=== PATIENT | female | born 1965 | race Caucasian/White ===

== ENCOUNTER 2019-12-07 15:28 | Observation (INO) | payer OTHER, SELFPAY ==
[2019-12-07] VITALS (12 sets, daily range): BP systolic 139–179; BP diastolic 88–111; PULSE 70–98; RESP 16–27; TEMP 36.8–37; O2SAT 89–98; BMI 33.5
--- NOTE | ~2019-12-07 | CT_ITS ---
EXAMINATION: CTA chest PE protocol EXAM DATE: 12/07/2019 17:56 INDICATION: Shortness of breath, sinus drainage, history of pneumonia. TECHNIQUE: Spiral CTA of the chest (pulmonary arteries) was performed with 100 cc Omnipaque 350 intr avenous contrast injection. Images were acquired during the pulmonary arterial phase. Coronal maxi mum intensity projection 3D-reconstructions were created by the technologist on dedicated workstation . Axial, coronal and sagittal reformatted images were reviewed. The dose-length product (DLP) for t his examination was 835.78 mGy-cm. The exposure was tailored according to patient size (auto mA exp osure control), and iterative reconstruction (ASIR) was used as additional dose reduction technique. There is no prior study for comparison. FINDINGS: Pulmonary arteries are well opacified and without intraluminal filling defects. No thora cic aortic dissection. The lungs are clear. There are no pleural or pericardial effusions. Trach eobronchial tree is patent. There is no mediastinal, hilar or axillary lymphadenopathy. There is no pneumothorax. Heart normal in size. No evidence of coronary arterial calcification. Upper abd omen is unremarkable. There is thoracic spondylosis without osteoblastic or osteolytic lesions iden tified. IMPRESSION: 1. Unremarkable CT pulmonary exam. Reviewed, dictated and finalized at location A.
--- NOTE | ~2019-12-07 | XR_ITS ---
EXAMINATION: XR chest 1V portable EXAM DATE: 12/07/2019 16:03 INDICATION: Shortness of breath, history of asthma. History of pneumonia. TECHNIQUE: Portable AP frontal chest x-ray was obtained. Comparison is made to prior examination from 01/08/2009. FINDINGS: The lungs are clear. There are no pleural effusions. The cardiomediastinal silhouette is within normal limits. There is no pneumothorax suspected. There is an old right 6th rib fracture. M ild thoracic spondylosis. IMPRESSION: No acute cardiopulmonary findings. Reviewed, dictated and finalized at location A.
--- NOTE | 2019-12-07 15:35 | ECG_ITS ---
Measurements Intervals [place] Rate: 88 P: 76 CT: 153 QRS: 66 QRSD: 94 T: 44 QT: 334 QTc: 405 Interpretive Statements SINUS RHYTHM BORDERLINE ST ABNORMALITY- ANT/INF LEADS BORDERLINE ECG Electronically Signed On 12-07-2019 16:28:38 CDT by Hugo Hunter D.O.
[2019-12-07 16:16] LABS: Basophils Absolute Auto 0.1 K/mm3 (0.0-0.1); Basophils Percent Auto 0.9 % (0.2-1.2); Eosinophils Absolute Auto 0.3 K/mm3 (0-0.3); Eosinophils Percent Auto 2.8 % (0-4.4); Hematocrit 44.3 % (37.0-47.0); Immature Granulocyte Absolute 0.04 K/mm3 (0.00-0.031); Immature Granulocyte Percent A 0.4 % (0-0.5); Lymphocytes Absolute Auto 1.64 K/mm3 (0.9-3.2); Mean Corpuscular HGB Conc 31.6 g/dl (32-36); Mean Corpuscular Hemoglobin 26.4 pg (26-34); Mean Corpuscular Volume 83.4 fl (80-100); Mean Platelet Volume 11.7 fl (7.4-10.4); Monocytes Absolute Auto 1.1 K/mm3 (0.1-0.6); Monocytes Percent Auto 10.7 % (2.6-8.5); Neutrophils Absolute Auto 7.1 K/mm3 (1.3-6.7); Neutrophils Percent Auto 69.2 % (45.5-73.1); Platelet Count Result 287 k/mm3 (150-375); Red Blood Count 5.31 M/mm3 (4.2-5.4); Red Cell Distribution Width 13.3 % (11.5-14.5); White Blood Count 10.3 K/mm3 (4.5-10.0)
[2019-12-07 16:26] LABS: Anion Gap 9 mmol/L (8-16); Blood Urea Nitrogen 12 mg/dL (7-17); Carbon Dioxide 25 mmol/L (22-30); Chloride 103 mmol/L (98-107); Estimated CRCL calculation 97 ml/min; Estimated Glomerular Filt Rate > 60; Glucose 133 mg/dL (65-105); Potassium 3.7 mmol/L (3.4-5.0); Sodium 137 mmol/L (137-145)
--- NOTE | 2019-12-07 16:39 | PC.NURSE ---
called lab to add julián
--- NOTE | 2019-12-07 16:46 | ED.GENADULT ---
HPI - General Adult General Chief complaint: Shortness of Breath/Dyspnea Stated complaint: sob Time Seen by Provider: 12/07/19 15:39 History of Present Illness HPI narrative: Patient is a 54 y/o female complaining of moderate shortness of breath since yesterday. She states her SOB is worse with supine position and exertion. She also has some cough with yellow sputum and nasal congestion. The cough and congestion has been going on for 4 days. She has no fever. Related Data Allergies Allergy/AdvReac Type Severity Reaction Status Date / Time penicillin G Allergy Mild Unknown Verified 12/07/19 15:50 Review of Systems Constitutional: Constitutional: Denies chills, Denies fever(s), Denies headache(s) and Denies weakness Eyes: Eyes: Denies blurry vision ENT: Denies headache(s), Reports nasal obstruction and Denies neck pain Cardiovascular: Cardiovascular: Denies chest pain and Reports dyspnea Respiratory: Respiratory: Reports cough and Reports dyspnea Gastrointestinal: Gastrointestinal: Denies abdominal pain, Denies diarrhea, Denies nausea and Denies vomiting Genitourinary: Genitourinary: Denies hematuria and Denies dysuria Musculoskeletal: Musculoskeletal: Denies back pain and Denies neck pain Neurologic: Denies headache(s) and Denies weakness [facility] Social History Social History Gender identity (if verbalized by the patient): Female Exam Const: General: no acute distress and well developed Orientation/consciousness: oriented to person, oriented to place, oriented to time and patient oriented x3 HENMT: Head: normocephalic Ears: external ears normal General nose exam: Normal external nose present Eyes: General: appearance normal, both eyes and all related structures Conjunctivae: conjunctivae normal Neck: Neck: normal visual inspection and full ROM Chest: Chest palpation & inspection: normal inspection of the chest and no tenderness Resp: Effort & Inspection: normal respiratory effort Auscultation: wheezes Cardio: Rate: regular rate Rhythm: regular rhythm GI: GI Palp: No abdominal tenderness and Yes Soft to palpation Skin: General skin exam: normal color and turgor normal Neuro: General: oriented to person, oriented to place, oriented to time and patient oriented x3 Cognition (Neuro): normal cognition Extrem: General: normal to inspection, full ROM and no pedal edema Psych: Appearance: grossly normal Mental Status: mental status grossly normal Affect: normal affect Course Consultations Consultation #1: Discussed with PEYMAN Kraus, who agrees to admit. Date: 12/07/19 Time: 18:25 Vital Signs Vital signs: Vital Signs Temperature 37.0 C 12/07/19 15:31 Pulse Rate 97 12/07/19 15:31 Respiratory Rate 27 H 12/07/19 15:31 Blood Pressure 155/108 H 12/07/19 15:31 Pulse Oximetry 94 12/07/19 15:31 Temperature 37.0 C 12/07/19 15:31 Pulse Rate 85 12/07/19 18:58 Respiratory Rate 17 12/07/19 18:58 Blood Pressure 168/99 H 12/07/19 18:58 Pulse Oximetry 98 12/07/19 18:58 Medical Decision Making Vital Signs Vital Signs: Vital Signs Temperature 37.0 C 12/07/19 15:31 Pulse Rate 97 12/07/19 15:31 Respiratory Rate 27 H 12/07/19 15:31 Blood Pressure 155/108 H 12/07/19 15:31 Pulse Oximetry 94 12/07/19 15:31 Temperature 37.0 C 12/07/19 15:31 Pulse Rate 85 12/07/19 18:58 Respiratory Rate 17 12/07/19 18:58 Blood Pressure 168/99 H 12/07/19 18:58 Pulse Oximetry 98 12/07/19 18:58 Lab Data Result diagrams: 12/07/19 16:08 12/07/19 16:08 Labs: Lab Results 12/07/19 12/07/19 12/07/19 Range/Units 16:08 16:08 16:08 WBC 10.3 H (4.5-10.0) K/mm3 RBC 5.31 (4.2-5.4) M/mm3 Hgb 14.0 (12.0-15.0) g/dL Hct 44.3 (37.0-47.0) % MCV 83.4 (80-100) fl MCH 26.4 (26-34) pg MCHC 31.6 L (32-36) g/dl RDW 13.3 (11.5-14.5) % Plt Count 287
[2019-12-07 16:54] LABS: D Dimer 0.53 ug/mL (<0.48)
[2019-12-07 16:59] LABS: NT Pro B Type Natriuretic Pept 106 PG/ML (5-100); Troponin I < 0.012 ng/mL (0.000-0.034)
[2019-12-07 17:10] LABS: Alveolar/Arterial O2 Gradient 40.4 mmHg; Base Excess ABG -0.1 mEq/l (+/-2.0); Fractional Inspired Oxygen 21 %; HCO3 ABG 25.4 mEq/l (22.0-26.0); Oxygen Content ABG 17.3 %vol (16.0-22.0); Oxygen Saturation ABG 88.3 % (95.0-100.0); Oxyhemoglobin 88.8 % THb (90.0-100.0); PCO2 ABG 44.6 mmHg (35.0-45.0); PO2 ABG 55.9 mmHg (80.0-100.0); PO2 FiO2 Ratio Arterial Blood 2.66 %; Total Hemoglobin 13.9 g/dL (12.0-18.0); pH ABG 7.374 (7.350-7.450)
[2019-12-07 17:11] LABS: Device ROOM AIR; Modified Allen's Test Pass; Site Drawn RIGHT RADIAL
--- NOTE | 2019-12-07 17:45 | PC.NURSE ---
Pt 89% when from chair to stretcher, tripod sitting.
--- NOTE | 2019-12-07 17:54 | PC.NURSE ---
Pt to CT scan via stretcher.
[2019-12-07] MEDS: methylPREDNISolone SOD SUCC 125 MG VIAL IV PUSH (18:37)
[2019-12-07 20:23] LABS: Troponin I < 0.012 ng/mL (0.000-0.034)
[2019-12-07] MEDS: ALBUTEROL SULFATE (*SP) AEROSOL 1 PUFF 2 PUFF INHALATION (20:49)
[2019-12-07 22:38] LABS: Troponin I < 0.012 ng/mL (0.000-0.034)
--- NOTE | 2019-12-07 22:54 | ADMGEN ---
This patient, Letha Castellanos, was admitted to [facility] Surg Room 327-01. Patient/family oriented to hospital policies and general routines including ID bracelet, bed and alarms, visiting hours, pain management, procedures, bathroom and other care routines, personal items, smoking policy, room service/diet, and visiting hours. Valuables list has been completed. Information on how to activate the Rapid Response Team has been discussed. Patient/Family are encouraged to report perceived risks to care and to ask questions if they do not understand what they are told or what they should do.
[2019-12-08] VITALS (10 sets, daily range): BP systolic 139–151; BP diastolic 58–83; PULSE 65–104; RESP 18–24; TEMP 36.7–37.3; O2SAT 94–97
[2019-12-08] MEDS: ALBUTEROL SULFATE (*SP) AEROSOL 1 PUFF 2 PUFF INHALATION (05:18)
--- NOTE | 2019-12-08 06:15 | PM.IMHP ---
H&P: HPI History of Present Illness Date/Time: 12/08/19 06:15 Chief complaint: Shortness of breath Narrative: Letha Castellanos is a 54 year old female with a past medical history of chronic tobacco abuse, seasonal rhinitis and GERD who presented to the ER with shortness of breath. The patient reports that she has been feeling ill for 5 days. Her symptoms started with rhinorrhea and postnasal drip. She then began having a cough productive of yellow sputum and she knew that the infection was going down into her lungs. She called her primary care provider who wanted the patient to have a virtual visit but the patient decided that she would come into the ER instead. She has not been having any fevers or chills. She denies loss of sense of taste or smell. She denies any known ill contacts with COVID-19. She has been social distant seeing and only leaving the house to go grocery shopping. She has been laid off since the beginning of the pandemic. She denies any fevers or chills. Her shortness of breath is worse with lying down due to increased cough. Her shortness of breath is also worse with exertion. She denies any chest pain or palpitations. She has not noticed any lower extremity swelling. Review of Systems Review of Systems: Narrative: 12 systems were reviewed with pertinent positives and negatives per HPI. Except as documented in the HPI, all other systems were reviewed and are negative. [facility] Past Medical History Medical History (Updated 12/08/19 @ 07:10 by Conchita Harper DO) GERD (gastroesophageal reflux disease) Hemorrhoids Seasonal rhinitis Tobacco use Umbilical hernia Surgical History Surgical History History of dilation and curettage 1996 Hx of tonsillectomy Family History Family History Father , at age 69 Coronary artery disease Mother , in her 80s Diabetes mellitus COPD (chronic obstructive pulmonary disease) Social History Social History (Updated 12/08/19 @ 07:03 by Conchita Harper DO) Social History: The patient has smoked for about 5 years and quit when she was 21. She then started smoking again about 10 years ago. On average she smokes about a pack of cigarettes per day. the patient is 1 of 8 children. Her oldest sister is 22 years older than the patient. She is the 2nd youngest child. She reports that her siblings are relatively healthy. Primary care provider: Dr. Shultz Code Status: full code Smoking packs per day: 1 Smoking cigarettes per day: 20.0 Years smoked: 15 Smoking pack-years: 15.00 Smoking status: Former smoker Tobacco type: cigarettes Second hand tobacco smoke exposure: No Smoking end date: 12/05/19 Additional smoking assessment comments: patient states she quit two days ago Alcohol intake: former Alcohol use details: The patient used to drink alcohol in moderation on occasion but has not drank alcohol in many years. Substance use: never Living arrangements: alone Additional living arrangements comments: She lives alone and has 2 adult children. She has 2 dogs. 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 Gender identity (if verbalized by the patient): Female Spiritual care concerns: No Meds Home Medications and Allergies Home Medications Medication Instructions Recorded Confirmed Type omeprazole magnesium [Acid [employer] 20 mg PO DAILY 12/07/19 12/07/19 History (omeprazole)] Allergies Allergy/AdvReac Type Severity Reaction Status Date / Time penicillin G Allergy Mild Unknown Verified 12/07/19 15:50 Vital Signs Vital Signs - 24 hr 12/07/19 15:31 12/07/19 15:47 12/07/19 16:28 Temperature 98.6 F Pulse Rate 97 88 Respiratory Rate 27 H Blood Pressure 155/108 H Pulse Oximetr
[2019-12-08] MEDS: ALBUTEROL SULFATE (*SP) AEROSOL 1 PUFF 6 PUFF INHALATION ×4 (08:02→21:42)
[2019-12-08] MEDS: PANTOPRAZOLE 40 MG TABLET PO (08:07)
[2019-12-08] MEDS: methylPREDNISolone SOD SUCC 125 MG VIAL 60 MG IV PUSH (08:07)
[2019-12-08 14:26] LABS: SARS-CoV-2 RNA PCR Negative
[2019-12-08] MEDS: methylPREDNISolone SOD SUCC 40 MG VIAL IV PUSH ×2 (15:16→21:25)
[2019-12-09] VITALS (8 sets, daily range): BP systolic 124–140; BP diastolic 65–77; PULSE 70–91; RESP 16–20; TEMP 36.3–37.1; O2SAT 91–95
[2019-12-09] MEDS: methylPREDNISolone SOD SUCC 40 MG VIAL IV PUSH ×3 (06:00→20:28)
[2019-12-09] MEDS: ALBUTEROL SULFATE (*SP) AEROSOL 1 PUFF 6 PUFF INHALATION ×4 (08:21→19:56)
[2019-12-09] MEDS: PANTOPRAZOLE 40 MG TABLET PO (08:34)
[2019-12-09] MEDS: FLUTICASONE PROPIONATE 0.05% NA SPR 16 GM BTL (*BKC) 1 SPRAY NASAL ×2 (10:17→20:28)
--- NOTE | 2019-12-09 14:51 | PM.IMPN ---
Progress Note: A&P Assessment and Plan (1) Bronchitis: Code(s): J40 - Bronchitis, not specified as acute or chronic Status: Acute (2) Tobacco abuse disorder: Code(s): Z72.0 - Tobacco use Status: Acute Assessment and Plan: Pt advised to quit smoking (3) Acute respiratory failure with hypoxia: Code(s): J96.01 - Acute respiratory failure with hypoxia Status: Acute Assessment and Plan: Continue breathing treatments, and IV steroids (4) Acute bronchitis: Code(s): J20.9 - Acute bronchitis, unspecified Status: Acute Assessment and Plan: will increase the patient's albuterol inhalers to 6 puffs Q 6 hours scheduled and will add Spiriva. Will increase the patient's Solu-Medrol to 60 mg q.8 hours. Pt is covid negative . Subjective Date/time seen: 12/09/19 14:51 Pt is admitted for copd excerbation, covid was negative Review of Systems Review of Systems: All systems reviewed & are unremarkable except as noted in HPI and below Cardiovascular: Cardiovascular: Reports dyspnea Comments: wheezy lungs Exam Narrative: Exam Narrative: PHYSICAL EXAM: Respiratory: Diffuse wheezing anterior lung silva Cardiovascular: normal S1-S2, no murmurs, 2+ pulses bilateral upper and lower extremities Gastrointestinal: soft, nontender, nondistended, positive bowel sounds, soft easily reducible umbilical hernia Skin: normal temperature, non jaundice, no pallor Musculoskeletal: no clubbing, cyanosis or edema Neurological: alert and oriented, speech is clear, no facial asymmetry Psychiatric: Appropriate mood and affect, pleasant and cooperative Objective Data Vital Signs Vital Signs: Vital Signs - 24 hr 12/08/19 16:00 12/08/19 20:00 12/08/19 21:43 Temperature Pulse Rate 94 104 H 86 Respiratory Rate 20 Blood Pressure Pulse Oximetry 94 12/08/19 22:00 12/09/19 00:00 12/09/19 04:00 Temperature 36.7 C 36.3 C L Pulse Rate 90 82 86 Respiratory Rate 18 18 Blood Pressure 142/83 H 140/74 Pulse Oximetry 96 95 12/09/19 08:00 12/09/19 08:23 12/09/19 09:15 Temperature Pulse Rate 70 Respiratory Rate Blood Pressure Pulse Oximetry 95 95 92 Intake/Output Intake/Output: Intake & Output 08/0912/07/19 12/08/19 12/09/19 23:59 23:59 23:59 23:59 Intake Total 380 1410 570 Output Total 1650 Balance 380 -240 570 Meds/Results Medications: Active Medications Generic Name Dose Route Start Last Admin Trade Name Freq PRN Reason Stop Dose Admin Albuterol 6 puff 12/08/19 08:00 12/09/19 12:45 Proventil Hfa INHALATION 6 puff QIDRT FARHEEN Administration Fluticasone Propionate 1 spray 12/09/19 09:15 12/09/19 10:17 Flonase 0.05% Nasal [place] NASAL 1 spray Q12HR FARHEEN Administration Methylprednisolone Sodium Succinate 40 mg 12/08/19 14:00 12/09/19 14:16 Solu-Medrol IV PUSH 40 mg Q8HR FARHEEN Administration Pantoprazole Sodium 40 mg 12/08/19 09:00 12/09/19 08:34 Protonix PO 01/07/20 09:01 40 mg DAILY FARHEEN Administration Tiotropium [place] 1 cap 12/08/19 09:00 12/09/19 08:22 Spiriva INHALATION 1 cap QAM FARHEEN Administration Radiology Results: ITS Impressions Chest X-Ray 12/07/19 16:04 IMPRESSION: No acute cardiopulmonary findings. Chest CTA 12/07/19 18:03 IMPRESSION: 1. Unremarkable CT pulmonary exam. Quality VTE Prophylaxis VTE prophylaxis: pharmacologic ordered ( Lovenox 40 mg subq daily)
[2019-12-10 05:57] VITALS: BP 136/79; PULSE 77; RESP 18; TEMP 36.8; O2SAT 92
[2019-12-10] MEDS: ALBUTEROL SULFATE (*SP) AEROSOL 1 PUFF 6 PUFF INHALATION ×3 (09:06→15:39)
[2019-12-10 09:09] VITALS: O2SAT 95
[2019-12-10] MEDS: FLUTICASONE PROPIONATE 0.05% NA SPR 16 GM BTL (*BKC) 1 SPRAY NASAL (09:17)
[2019-12-10] MEDS: PANTOPRAZOLE 40 MG TABLET PO (09:17)
[2019-12-10] MEDS: methylPREDNISolone SOD SUCC 40 MG VIAL IV PUSH (09:18)
--- NOTE | 2019-12-10 14:10 | P.DS_ITS ---
DS: Admitting Diagnosis Admitting Diagnosis Admitting Diagnosis: Shortness of breath DS: Discharge Diagnosis Discharge Diagnosis (1) Bronchitis: Code(s): J40 - Bronchitis, not specified as acute or chronic Status: Acute Assessment and Plan: Pt is admitted for copd excerbation, covid was negative. Treated for COPD excerbation in hospital, did well and was discharged home. (2) Tobacco abuse disorder: Code(s): Z72.0 - Tobacco use Status: Acute Assessment and Plan: Pt advised to quit smoking (3) Acute respiratory failure with hypoxia: Code(s): J96.01 - Acute respiratory failure with hypoxia Status: Acute Assessment and Plan: * Continue breathing treatments, and IV steroids (4) Acute bronchitis: Code(s): J20.9 - Acute bronchitis, unspecified Status: Acute Assessment and Plan: * Patient is on albuterol inhalers to 6 puffs Q 6 hours scheduled and will add Spiriva. * Pt was on iv Solu-Medrol to 60 mg q.8 hours. Weaned off iv steroids and transitioned to oral steroids. * Pt did well and was discharged home. DS: Summary Time Spent with Patient Time attestation: Total time spent providing and/or coordinating discharge services:40 minutes on day of discharge Exam Narrative: Exam Narrative: PHYSICAL EXAM: Respiratory: Clear breath sounds. Cardiovascular: normal S1-S2, no murmurs, 2+ pulses bilateral upper and lower extremities Gastrointestinal: soft, nontender, nondistended, positive bowel sounds Skin: normal temperature, non jaundice, no pallor Musculoskeletal: no clubbing, cyanosis or edema Neurological: alert and oriented, speech is clear, no facial asymmetry Psychiatric: Appropriate mood and affect, pleasant and cooperative Discharge Plan Discharge Attending physician on discharge: Nat Rodney Consulting providers: Christian Barboza ; Hugo Hunter ; Conchita Harper Discharging Clinician: Nat Rodney Anticipated Discharge Date/Time: 12/10/19 14:07 Patient Disposition: Home, Self-Care Activity: as tolerated Diet: regular Patient Instructions: Antibiotic Form Stand Alone Forms: General Discharge Information Follow-up/Referrals: Lexii,Dashawn Loo MD [Primary Care Provider] - Discharge Medications: New albuterol sulfate [Proventil HFA] 90 mcg/actuation Hfa Aerosol Inhaler 6 puff inhalation QIDRT Qty: 1 RF: 0 Spiriva with HandiHaler 18 mcg Capsule, W/Inhalation Device 1 cap inhalation QAM Qty: 30 RF: 0 methylprednisolone [Medrol (Mario)] 4 mg tablets,dose pack See Rx Instructions .ROUTE .COMPLEX Qty: 21 RF: 0 Continued omeprazole magnesium [Acid [employer] (omeprazole)] 20 mg Capsule,Delayed Release(Dr/Ec) 20 mg PO DAILY RF: 0 Date of admission: 12/07/19 18:42 Primary Care Provider: Lexii,Dashawn Loo Admitting Provider: Stefano Sexton Discharge Date/Time: 12/10/19 16:40 Attending physician on admission: Nat Rodney Condition: Stable
[2019-12-10 15:48] VITALS: BP 138/72; PULSE 72; RESP 20; TEMP 36.9; O2SAT 93
== END 2019-12-10 16:40 | disposition home or self-care (01) ==
LOC: ANHED 19:10 → ANH3MEDSUR 12-08 06:17
PROVIDERS: Admitting Provider Internal Medicine; Emergency Provider Emergency Medicine; PCP Internal Medicine; Visit Provider Family Medicine
DX: J44.1 Chronic obstructive pulmonary disease with (acute) exacerbation (principal); Z20.828 Contact with and (suspected) exposure to other viral communicable diseases; J96.01 Acute respiratory failure with hypoxia; J20.9 Acute bronchitis, unspecified; K21.9 Gastro-esophageal reflux disease without esophagitis; Z87.891 Personal history of nicotine dependence
CPT/HCPCS: 36415; 36600; 71045; 71275; 80048; 82805; 83880; 84484; 85025; 85380; 87635; 93005; 94640; 96374; 96376; 99291; A9270; C9803; G0378; J2920; J2930; Q9967; U0003

== ENCOUNTER 2021-11-21 16:31 | Outpatient (CLI) | payer OTHER, SELFPAY ==
--- NOTE | ~2021-11-21 | XR_ITS ---
EXAM: XR lumbar spine 2-3V DATE: 11/21/2021 16:51 HISTORY: LOW RT BACK PAIN INTO POSTERIOR RT HIP XSVL MONTHS NO INJURY . COMPARISON: None available. FINDINGS: 5 nonrib-bearing lumbar-type vertebral bodies. Pedicles intact. Normal vertebral body alig nment. Mild multilevel concave endplate deformities, otherwise vertebral body heights preserved. Mult ilevel mild disc space narrowing and marginal osteophytosis. Multilevel facet sclerosis, hypertrophy, and interspinous narrowing. No fracture or dislocation. Incidental note of moderate degenerative dis c changes in the lower thoracic spine/thoracolumbar junction. IMPRESSION: Multilevel mild degenerative disc disease and moderate facet arthropathy in the lumbar sp ine. Reviewed, dictated and finalized at location K. IMPRESSION: Multilevel mild degenerative disc disease and moderate facet arthro tere in the lumbar spine.
== END 2021-11-21 16:32 | disposition home or self-care (01) ==
PROVIDERS: PCP Internal Medicine; Visit Provider Internal Medicine
DX: M54.50 Low back pain, unspecified (principal); M51.36 Other intervertebral disc degeneration, lumbar region; M12.88 Other specific arthropathies, not elsewhere classified, other specified site
CPT/HCPCS: 72100

== ENCOUNTER 2023-03-20 12:52 | Outpatient (CLI) | payer BC, SELFPAY ==
--- NOTE | ~2023-03-20 | DEXA_ITS ---
Bone Density Report Name: NAYANA ANDERSON Age: 57 Sex: Female Ethnicity: White Date of : 1965 Indication: postmenopausal; screening for osteoporosis; height loss; asthma or emphysema; Referring Provider: KAMRAN, PEPITO Loo Study: Bone densitometry was performed. Exam Date: March 20, 2023 Accession number: [id number] Bone Density: Region BMD T-score Z-score Classification AP Spine(L1-L4) 1.020 -0.2 1.0 Normal Femoral Neck (Left) 0.687 -1.5 -0.3 Osteopenia Total Hip (Left) 0.862 -0.7 0.2 Normal Femoral Neck (Right) 0.654 -1.8 -0.6 Osteopenia Total Hip (Right) 0.812 -1.1 -0.2 Osteopenia Femoral Neck Mean 0.671 -1.6 -0.4 Osteopenia Total Hip Mean 0.837 -0.9 0.0 Normal World Health Organization criteria for BMD impression classify patients as: Normal (T-score at or above -1.0), Osteopenia (T-score between -1.0 and -2.5), or Osteoporosis (T-score at or below -2.5). 10-year Fracture Risk(1): Major Osteoporotic Fracture 7.7% Hip Fracture 0.7% Reported Risk Factors: [place] (), Neck BMD=0.654, BMI=30.8 (1) FRAX(R) Version 3.08. Fracture probability calculated for an untreated patient. Fracture probability may be lower if the patient has received treatment. Clinical Information Provided by Patient: Has used the following medications: Vitamin D Has the following medical conditions: Asthma or Emphysema Patient maximum height was 64 Menopause Age: 57 No regular weight bearing exercise Does not regularly consume dairy products Onset of menses at age 12 Number of children 2 Missed period for more than 6 months in a row Impression: The patient has low bone mass, based on the Right Femoral Neck T-score. Discussion: BONE DENSITY IS LOW AT ONE OR MORE SKELETAL SITES. This patient's lowest T-score is low at one or more skeletal sites. It meets the World Health Organization's (WHO) criteria for ?low bone mass? (T-score between -1.0 and -2.5). The patient's 10-year risk of fracture as calculated by FRAX is less than the threshold where pharmacological therapy is recommended by the National Osteoporosis Foundation (NOF). However, all treatment decisions require clinical judgment and consideration of individual patient factors, including patient preferences, comorbidities, previous drug use, risk factors not captured in the FRAX model (e.g., frailty, falls, vitamin D deficiency, increased bone turnover, interval significant decline in bone density) and possible under or overestimation of fracture risk by FRAX. The patient should follow a healthful lifestyle (good nutrition with adequate calcium and vitamin D, and appropriate weight-bearing exercise). Follow-Up: Consider repeating this study in 2 to 3 years to reassess this patient's status, or sooner if there is
--- NOTE | ~2023-03-20 | MM_ITS ---
EXAMINATION: MM screening jigna BI w karen HISTORY: Screening mammogram TECHNIQUE: Craniocaudal and mediolateral oblique 3-D tomosynthesis images were obtained and synthetic 2-D images were generated. CAD analysis was submitted and interpreted. COMPARISON: 07/07/2008 right breast ultrasound diagnostic right mammogram 06/23/2008 bilateral screening mammogram BREAST PARENCHYMAL COMPOSITION: There are scattered areas of fibroglandular density. FINDINGS: There is no evidence of suspicious mass, calcification, or architectural distortion to sugg est malignancy in either breast. There has been no suspicious interval change. IMPRESSION: 1. No mammographic evidence of malignancy. 2. Recommend routine screening mammography in one year. BI-RADS Category 1: Negative............. Reviewed, dictated and finalized at location A. ITY NURSE
== END 2023-03-20 12:53 | disposition home or self-care (01) ==
LOC: CHSIMG 12:56
PROVIDERS: PCP Internal Medicine; Visit Provider Internal Medicine
DX: Z12.31 Encounter for screening mammogram for malignant neoplasm of breast (principal); Z78.0 Asymptomatic menopausal state; M85.89 Other specified disorders of bone density and structure, multiple sites
CPT/HCPCS: 77063; 77067; 77080

== ENCOUNTER 2024-06-23 10:37 | Emergency (ER) | payer BC, SELFPAY ==
--- NOTE | 2024-06-23 10:56 | ED_ITS ---
HPI - URI/Sore Throat General Chief Complaint: Urogenital-Female Stated Complaint: right side back pain, frequent urination, nausea Time Seen by Provider: 06/23/24 10:57 Source: patient, RN notes reviewed and old records reviewed Mode of arrival: ambulatory Limitations: no limitations History of Present Illness HPI Narrative: Patient presents with complaints of dysuria that began yesterday, now having some intermittent right flank pain as well. She denies any fever, chills, sweats. She denies any injury or trauma. She reports that right flank pain is actually not present right now. She denies other complaints. She is not in any obvious distress Related Data Allergies Allergy/AdvReac Type Severity Reaction Status Date / Time penicillin G Allergy Mild Unknown Verified 06/23/24 11:32 Review of Systems Review of Systems: All systems reviewed & are unremarkable except as noted in HPI and below Constitutional: Constitutional: Reports no additional constitutional complaints ENT: Reports system reviewed and no additional complaints, except as documented Cardiovascular: Cardiovascular: Reports no additional cardiovascular com plaints Respiratory: Respiratory: Reports no additional respiratory complaints Gastrointestinal: Gastrointestinal: Reports no additional gastrointestinal complaints Genitourinary: Genitourinary: Reports as per HPI, Reports dysuria and Reports flank pain (right) [facility] Past Medical History Medical History (Updated 06/23/24 @ 11:33 by Jocy Marie APRN) Umbilical hernia Seasonal rhinitis Hemorrhoids Tobacco use GERD (gastroesophageal reflux disease) Surgical History Surgical History History of dilation and curettage 1996 Hx of tonsillectomy Family History Family History Father , at age 69 Coronary artery disease Mother , in her 80s Diabetes mellitus COPD (chronic obstructive pulmonary disease) Social History Social History Social History: The patient has smoked for about 5 years and quit when she was 21. She then started smoking again about 10 years ago. On average she smokes about a pack of cigarettes per day. the patient is 1 of 8 children. Her oldest sister is 22 years older than the patient. She is the 2nd youngest child. She reports that her siblings are relatively healthy. Primary care provider: Dr. Shultz Code Status: full code Smoking packs per day: 1 Smoking cigarettes per day: 20.0 Years smoked: 15 Smoking pack-years: 15.00 Smoking status: Former smoker Tobacco type: cigarettes Second hand tobacco smoke exposure: No Smoking end date: 12/05/19 Additional smoking assessment comments: patient states she quit two days ago Alcohol intake: former Alcohol use details: The patient used to drink alcohol in moderation on occasion but has not drank alcohol in many years. Substance use: never Living arrangements: alone Additional living arrangements comments: She lives alone and has 2 adult children. She has 2 dogs. 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 Gender identity (if verbalized by the patient): Female Spiritual care concerns: No Comments At the time of my signature, I reviewed and agree with the nursing past medical, surgical, social, and family history. There is no relevant family history pertinent to the patient complaint. Exam Const: General: cooperative, no acute distress, alert and awake Orientation/consciousness: oriented to person, oriented to place and oriented to time HENMT: Head: normal to inspection Resp: Effort & Inspection: normal respiratory effort and able to speak in complete sentences Auscultation: clear to auscultation bilaterally, no crackles, no rales, no rhonchi and no wheezes Cardio: Palpation: normal PMI Rate: regular rate Rhythm: regular rhythm Heart sounds: S1 normal heart sound present and S2 normal heart sound present : General: Yes bladder normal to palpation and Yes no CVA tenderness Neuro: General: oriented to person, oriented to place and oriented to time Cranial nerves: Yes CN's II-XII intact bilaterally Psych: Appearance: grossly normal Thought process: Normal thought process present Insight: Good insight present (Psych) Judgement: Good judgement present (Psych) Course Course Level of Care: Express Care Visit Vital Signs Vital signs: Vital Signs Temperature 97.1 F L 06/23/24 11:01 Pulse Rate 59 L 06/23/24 11:01 Respiratory Rate 16 06/23/24 11:01 Blood Pressure 147/71 H 06/23/24 11:01 Pulse Oximetry 99 06/23/24 11:01 Oxygen Delivery Room Air 06/23/24 11:01 Temperature 97.1 F L 06/23/24 11:01 Pulse Rate 59 L 06/23/24 11:01 Respiratory Rate 16 06/23/24 11:01 Blood Pressure 147/71 H 06/23/24 11:01 Pulse Oximetry 99 06/23/24 11:01 Oxygen Delivery Room Air 06/23/24 11:01 Reviewed MDM - URI/Sore Throat MDM Narrative Medical decision making narrative: UA concerning for UTI. Culture sent. No CVA tenderness. Patient nontoxic appearing, stable for discharge home on p.o. antibiotic therapy. Emergency dep artment precautions discussed. Discharge instructions reviewed with patient, as well as provided in writing per nursing staff. The instructions also include specific and strict return/GO TO THE ER as well as f/u information. All questions have been answered, and the patient deny any further questions with discharge and discharge plan. Some parts of this dictation were generated by voice recognition software and may contain typographical and/or grammatical inaccuracies. Differential Diagnosis Differential diagnosis: Likely other (Pyelonephritis, kidney stones, cystitis) Medical Records Attestation: I reviewed the patient's medical records. Lab Data Attestation: I reviewed the patient's lab results. Labs: Lab Results 06/23/24 Range/Units 11:03 POC Urine Color Yellow POC Urine Clarity Clear POC Urine pH 5.5 POC Ur Specif [place] 1.030 POC Urine Protein Negative (Negative) POC Ur Glucose (UA) Negative (Negative) POC Urine Ketones Negative (Negative) POC Urine Blood 3+ (Negative) POC Urine Nitrite Negative (Negative) POC Urine Bilirubin Negative (Negative) POC Urine Urobilinogen 0.2 POC U Leukocyte Esteras 1+ (Negative) Discharge Plan Discharge Clinical Impression: UTI (urinary tract infection) Qualifiers: Urinary tract infection type: site unspecified Hematuria presence: with hematuria Qualified Code(s): N39.0 - Urinary tract infection, site not specified Patient Disposition: Home, Self-Care Condition: Stable Instructions: Antibiotic Form, Urinary Tract Infection in Women (ED) Additional Instructions: Take medications as prescribed. Follow with primary care provider. Emergency department for new or worse symptoms Patient Language: Serbian Prescriptions: New nitrofurantoin monohyd/m-cryst [Macrobid] 100 mg capsule 100 mg PO Q12H 5 Days Qty: 10 0RF Rx Instructions: must administer with a meal/food phenazopyridine [Pyridium] 200 mg tablet 200 mg PO TID PRN (Reason: pain) Qty: 6 0RF No Action albuterol sulfate [Proventil HFA] 90 mcg/actuation Hfa Aerosol Inhaler 6 puff inhalation QIDRT Qty: 1 0RF Follow-up/Referrals: Lexii,Dashawn Loo MD [Primary Care Provider] - 1 Week Stand Alone Forms: Work/School Release IP Time of Disposition: 11:34
[2024-06-23 11:01] VITALS: BP 147/71; PULSE 59; RESP 16; TEMP 36.2; O2SAT 99
[2024-06-23 11:07] LABS: EDUAAPPEAR Clear; EDUABILI Negative (Negative); EDUABLOOD 3+ (Negative); EDUACOLOR1 Yellow; EDUAGLUCOSE Negative (Negative); EDUAKETONE Negative (Negative); EDUALEUKO 1+ (Negative); EDUANITRATE Negative (Negative); EDUAPH 5.5; EDUAPROTEIN Negative (Negative); EDUAUROBILI 0.2
== END 2024-06-23 11:40 | disposition home or self-care (01) ==
PROVIDERS: Emergency Provider Nurse Practitioner Family; PCP Internal Medicine
DX: N39.0 Urinary tract infection, site not specified (principal); F17.210 Nicotine dependence, cigarettes, uncomplicated; K21.9 Gastro-esophageal reflux disease without esophagitis
CPT/HCPCS: 81003; 87086; 99203; G0463